=== PATIENT | female | born 1990 | race African-American/Black ===

== ENCOUNTER 2020-01-28 11:05 | Emergency (ER) | payer OTHER ==
[2020-01-28 11:22] VITALS: BP 104/53; PULSE 88; TEMP 98.7; BMI 22.6
--- NOTE | 2020-01-28 11:53 | PDOC ---
History of Present Illness - General Chief Complaint: Weakness Stated Complaint: WEAK AND RIGHT LEG PAIN Time Seen by Provider: 01/28/20 11:45 - History of Present Illness Initial Comments: 01/28/20 15:24 Chief complaint: Right leg pain, generalized weakness and fatigue HPI: Intermittent right leg pain for several weeks, described as a sharp shooting pain down the back of the thigh and calf, accompanied by numbness and paresthesias. Similar symptoms in the anterior thigh. Neither of these symptoms are present now. History of recurrent back pain, but no recent back pain and no injury or vigorous exercise. The patient does not spend prolonged periods of time sitting in a chair or in the car. Review of systems: Denies fever/chills, URI symptoms, sore throat, cough, chest pain, shortness of breath, abdominal pain, nausea, vomiting, diarrhea, visual symptoms, unsteadiness of gait. She is worried about STDs because she has had unprotected intercourse. HIV -1-year ago, no history of other STD in the past. No abnormal vaginal discharge or bleeding. No sores, lesions, lumps, or bumps in the genital area. Past medical history: Chronic intermittent back pain as described above. Heavy menses. Anemia thought due to heavy menses. Social/family history reviewed and noncontributory except as mentioned above Physical exam: Alert and oriented well-developed well-nourished no acute distress cheerful and cooperative. Patient does not appear to be in pain or in any other acute distress Afebrile, vital signs normal No pallor or icterus. PERRLA, fundi benign, ENT clear Neck supple without bruit mass or nodes Lungs clear with full breath sounds bilaterally CV S1-S2 normal without murmur rub or gallop pulses full and symmetric no JVD no edema Abdomen soft nontender without mass organomegaly. No CVAT Neurological C2 to 12 intact. No focal sensory or motor deficits. Strength full and symmetric. Cerebellar intact. Gait stable and unimpaired Extremities no CCE Skin clear, no rash, adequate turgor and wet mucous membranes LS spine without deformity or point tenderness. There is preservation of the normal lumbar lordosis. Straight leg raising is negative. As mentioned above, no demonstrable sensory or motor deficits. Impression: Sciatica, chronic anemia due to heavy menses, and noncompliance with iron therapy, unprotected intercourse with risk of STD Plan: Lidocaine patch, rest, and follow-up with orthopedist for sciatica. 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 Screen for STDs. Past History - Past Medical History Allergies/Adverse Reactions: Allergies Allergy/AdvReac Type Severity Reaction Status Date / Time No Known Allergies Allergy Verified 01/28/20 11:08 Home Medications: Ambulatory Orders Ferrous Sulfate 325 mg PO TID #90 tablet 01/28/20 Lidocaine 5% Patch [Lidoderm -] 1 patch TP DAILY #30 patch 01/28/20 Asthma: Yes Cancer: No Cardiac Disorders: No COPD: No Diabetes: No HTN: No Seizures: No Thyroid Disease: No - Surgical History Abdominal Surgery: Yes (PELVIC HERNIA X 2 (prior to C-sections)) - Reproductive History (#): 4 Para: 2 Cervical CA: No Dysfunctional Uterine Bleeding: No Ectopic : No Endometrial CA: No Polycystic Ovaries: No Therapeutic (s) & number: No Tubal Ligation: No Spontaneous : 1 - Psycho Social/Smoking Cessation Hx Smoking Status: Yes Smoking History: Current every day smoker Have you smoked in the past 12 months: Yes Number of Cigarettes Smoked Daily: 7 Information on smoking cessation initiated: No Hx Alcohol Use: No Drug/Substance Use Hx: No Substance Use Type: None Hx Substance Use Treatment: No *Physical Exam - Vital Signs Last Vital Signs Temp Pulse Resp BP Pulse Ox 98.7 F 88 16 104/53 L 100 01/28/20 11:08 01/28/20 11:08 01/28/20 11:08 01/28/20 11:08 01/28/20 11:08 ED Treatment Course - LABORATORY CBC & Chemistry Diagram: 01/28/20 12:35 01/28/20 13:00 Medical Decision Making - Medical Decision Making 01/28/20 14:21 CBC chemistries urinalysis and test all without significant abnormalities except for H&H, which is 8.4 and 28.6. Patient is known to be chronically anemic, thought to be due to heavy menses. And indeed prior CBCs stretching over greater than 1 year show hemoglobins in the range of 7-8 and hematocrit is in the range of 26-29. Patient has been advised to take iron, but has been noncompliant. Her menses remain heavy. No sign of acute infection. Shooting pains, numbness, and tingling in the L4- L5 distribution, right leg, probably due to sciatica. She has had back problems in the past, although no recent injury or exacerbation of back pain. Tylenol and lidocaine patch, with follow-up orthopedist/back specialist recommended. STD screens are pending and the patient will call back for results Fully ambulatory and in no significant pain or other distress at discharge to follow-up with primary physician and back specialist as directed. Discharge - Discharge Information Problems reviewed: Yes Clinical Impression/Diagnosis: Anemia Qualifiers: Anemia type: iron deficiency Iron deficiency anemia type: inadequate dietary iron intake Qualified Code(s): D50.8 - Other iron deficiency anemias Sciatica Qualifiers: Laterality: right Qualified Code(s): M54.31 - Sciatica, right side Condition: Stable Disposition: HOME - Admission No - Additional Discharge Information Prescriptions: Ferrous Sulfate 325 mg PO TID #90 tablet Lidocaine 5% Patch [Lidoderm -] 1 patch TP DAILY #30 patch - Follow up/Referral Referrals: Saleem Rose MD [Staff Physician] - - Patient Discharge Instructions Patient Printed Discharge Instructions: DI for Sciatica, DI for Iron Deficiency Anemia-Adult Additional Instructions: For your sciatica, avoid sitting in a chair or car seat for prolonged periods of time. Either lie flat or actively walk around. If no improvement, see pressure list as recommended For your anemia, take iron as prescribed, vitamin C, and follow-up with your hr administrator to see if treatment is warranted for your heavy periods. - Post Discharge Activity Work/Back to School Note: Back to Work
[2020-01-28] MEDS ORDERED: ACETAMINOPHEN 1000 MG/100 ML VIAL (NON FORMULARY) IVPB ONE (12:33)
[2020-01-28] MEDS ORDERED: SODIUM CHLORIDE 1,000 ML IV STA (12:33)
[2020-01-28] MEDS ORDERED: ACETAMINOPHEN INJECTION 100 ML IVPB ONE (12:43)
[2020-01-28 13:09] LABS: BILIRUBIN,TOTAL 0.4 mg/dl (0.2-1); CALCIUM 8.8 mg/dl (8.5-10); CREATININE 0.7 mg/dl (0.55-1.3)
[2020-01-28 14:10] LABS: BASO % 0.6 % (0-2.0); EOS % 2.7 % (0-4.5); HEMATOCRIT 28.6 % (32.4-45.2); HEMOGLOBIN 8.4 GM/dl (10.7-15.3); LYMPH % 17.5 % (8-40); MCHC 29.4 g/dl (32.0-36.0); MEAN CELL VOLUME 59.7 fl (80-96); MEAN PLT VOLUME 9.6 fl (7.5-11.1); NEUT % 63.2 % (42.8-82.8); PLATELET COUNT 240 K/MM3 (134-434); RDW 20.9 % (11.6-15.6); WHITE BLOOD COUNT 5.7 K/mm3 (4.0-10.8)
[2020-01-28 14:13] LABS: MCH 17.5 pg (25.7-33.7)
[2020-01-28 14:14] LABS: ADD RBC MORPHOLOGY YES
[2020-01-28 14:33] LABS: ANISOCYTOSIS 2+
[2020-01-28 14:35] LABS: PLATELET ESTIMATE ADEQUATE
== END 2020-01-28 14:38 | disposition home or self-care (01) ==
LOC: FER 11:05
PROC: 3E033NZ Introduction of Analgesics, Hypnotics, Sedatives into Peripheral Vein, Percutaneous Approach (ICD-10-PCS; principal; 2020-01-28)
DX: D50.8 Other iron deficiency anemias (principal); F17.210 Nicotine dependence, cigarettes, uncomplicated
CPT/HCPCS: 36415; 80053; 81003; 84703; 85025; 87389; 87491; 87591; 99284-25; J0131; J7030

== ENCOUNTER 2020-08-11 14:54 | Emergency (ER) | payer OTHER ==
[2020-08-11 15:01] VITALS: BP 95/63; PULSE 80; TEMP 98.8; BMI 23.6
--- NOTE | 2020-08-11 15:08 | PDOC ---
Rapid Medical Evaluation Chief Complaint: Lightheaded Time Seen by Provider: 08/11/20 15:05 Medical Evaluation: Allergies Allergy/AdvReac Type Severity Reaction Status Date / Time No Known Allergies Allergy Verified 01/28/20 11:08 Vital Signs Temp Pulse Resp BP Pulse Ox 98.8 F 80 18 95/63 99 08/11/20 14:58 08/11/20 14:58 08/11/20 14:58 08/11/20 14:58 08/11/20 14:58 08/11/20 15:07 CC: lightheadned, went to urgent care clinic and BP 92/50, hx anemia, denies active bleeding and takes iron daily Exam: bp borderline low, appears pale Plan: labs Discharge Disposition - Diagnosis Dizziness - Discharge Dispostion Disposition: ELOPED Condition at time of disposition: Stable - Referrals Referrals: Lexis Frances NP [Primary Care Provider] - - Patient Instructions - Post Discharge Activity
--- OUTSIDE RECORDS SUMMARY | 2020-08-11 19:00 | XMS ---
:1990 Author Organization [facility] Care Team Providers Name Role Phone MEGHAN MILLER, LESLEYY Unavailable MEGHAN MILLER, RINY Unavailable MEGHAN MILLER, RINY Unavailable MEGHAN MILLER, RINY Unavailable DAVID MILLER, EVERARDO Unavailable DAVID MILLER, EVERARDO Unavailable DAVID MILLER, EVERARDO Unavailable DAVID MILLER, EVERARDO Unavailable DAVID MILLER, EVERARDO Unavailable ACE CNM, LUCY Unavailable ACE CNM, LUCY Unavailable RADHA ACQUISITION PROFESSIONAL, AMERICO Unavailable RADHA ACQUISITION PROFESSIONAL, AMERICO Unavailable VERÓNICA SYLVESTER Unavailable Unavailable KAYLEEN BENITEZ Unavailable Unavailable Re-disclosure Warning The records that you are about to access may contain information from federally- assisted alcohol or drug abuse programs. If such information is present, then the following federally mandated warning applies: This information has been disclosed to you from records protected by federal confidentiality rules (42 CFR part 2). The federal rules prohibit you from making any further disclosure of this information unless further disclosure is expressly permitted by the written consent of the person to whom it pertains or as otherwise permitted by 42 CFR part 2. A general authorization for the release of medical or other information is NOT sufficient for this purpose. The Federal rules restrict any use of the information to criminally investigate or prosecute any alcohol or drug abuse patient.The records that you are about to access may contain highly sensitive health information, the redisclosure of which is protected by Article 27-F of the [facility] Public Health law. If you continue you may haveaccess to information: Regarding HIV / AIDS; Provided by facilities licensed or operated by the [facility] Office of Mental Health; or Provided by the [facility] Office for People With Developmental Disabilities. If such information is present, then the following [facility] mandated warning applies: This information has been disclosed to you from confidential records which are protected by state law. State law prohibits you from making any further disclosure of this information without the specific written consent of the person to whom it pertains, or as otherwise permitted by law. Any unauthorized further disclosure in violation of state law may result in a fine or mcc sentence or both. A general authorization for the release of medical or other information is NOT sufficient authorization for further disclosure. Allergies and Adverse Reactions Type Description Substance Reaction Status Data Source(s ) Allergy to No Known Allergies No known GREENW AY ([facility] substance allergies [facility] ) Allergy to No Known Allergies No known GREENW AY ([facility] substance allergies [facility] ) Allergy to No Known Allergies No known GREENW AY ([facility] substance allergies [facility] ) Allergy to No Known Allergies No known GREENW AY ([facility] substance allergies [facility] ) Encounters Encounter Providers Location Date Indications Data Source(s ) Outpatient Attender: NGA 06/04/2020 Z03.818 [facility] VERÓNICA GuzmanAdmitter: 06:00:00 AM Health Care VERÓNICA SYLVESTER ED Corporatio n E.Referrer: VERÓNICA SYLVESTER Z03.818 Outpatient<td Attender: Hector 03/21/2019 Visual SATYA ID="encounterTypeDescriptionID0">[facility]</td><td>[facility] 01:15:00 PM DisturbancesChlamydial ([facility]</td><td>[facility] EDT - InfectionsAnemia Neighborhood Center</td><td>03/21/2019</td><td><content ACQUISITION PROFESSIONAL Center 02/25 Health ID="encounterDiagnosisID0-0">Chlamydial 11:59:0 0 PM Center) Infections</content>, <content EDT ID="encounterDiagnosisID0-1">Anemia</content>, <content ID="encounterDiagnosisID0-2">Visual Disturbances</content></td> Visual Disturbances Chlamydial Infections Anemia Outpatient<td Attender: Hector 03/21/2019 Chlamydial SATYA ID="encounterTypeDescriptionID1">*OUTREACH*</td><td>[facility] 11:47:00 AM InfectionsChlamydial ([facility]</td><td>[facility] E DT - Infections [facility]</td><td>03/21/2019</td><td><content ACQUISITION PROFESSIONAL Center 02/25 Health ID="encounterDiagnosisID1-0">Chlamydial 11:59:0 0 PM Center) Infections</content></td> EDT Chlamydial Infections Chlamydial Infections Emergency Attender: ELI, 03/17/2019 12:08:00 [facility] Outpatient<td Attender: Hector 03/17/2019 SATYA ID="encounterTypeDescriptionID2">*OUTREACH*</td><td>[facility] 10:44:00 AM ([facility]</td><td>[facility] E DT - Neighborhood Center</td><td>03/17/2019</td><td></td> ACQUISITION PROFESSIONAL Center [facility] 11:59:00 PM Center) EDT Outpatient<td ID="encounterTypeDescriptionID3">COMPLETE Attender : Hector 03/11/2019 R TOA ALTA PHYSICAL EXAM</td><td>[facility] ACQUISITION PROFESSIONAL</td><td>[facility] 10:30:00 AM o ([facility] EDT - u Neighbor [facility]</td><td>03/11/2019</td><td><content ACQUISITION PROFESSIONAL Center 02/24 t Health ID="encounterDiagnosisID3-0">Preventive Med Standardized 01:06:32 PM i Center) Depression Screening: Negative For Symptoms</content>, EDT n <content ID="encounterDiagnosisID3-1">Questionnaires Phq-9 e Quick Depression Assessment Panel</content>, <content H ID="encounterDiagnosisID3-2">Routine History and i Physical</content>, <content s ID="encounterDiagnosisID3-3">Anemia</content></td> t o r y a n d P h y s i c a l Q u e s t i o n n a i r e s P h q - 9 Q u i c k D e p r e s s i o n A s s e s s m e n t P a n e l P r e v e n t i v e M e d S t a n d a r d i z e d D e p r e s s i o n S c r e e n i n g : N e g a t i v e F o r S y m p t o m s R o u t i n e H i s t o r y a n d P h y s i c a l Q u e s t i o n n a i r e s P h q - 9 Q u i c k D e p r e s s i o n A s s e s s m e n t P a n e l P r e v e n t i v e M e d S t a n d a r d i z e d D e p r e s s i o n S c r e e n i n g : N e g a t i v e F o r S y m p t o m s R o u t i n e H i s t o r y a n d P h y s i c a l Q u e s t i o n n a i r e s P h q - 9 Q u i c k D e p r e s s i o n A s s e s s m e n t P a n e l P r e v e n t i v e M e d S t a n d a r d i z e d D e p r e s s i o n S c r e e n i n g : N e g a t i v e F o r S y m p t o m s R o u t i n e H i s t o r y a n d P h y s i c a l Q u e s t i o n n a i r e s P h q - 9 Q u i c k D e p r e s s i o n A s s e s s m e n t P a n e l P r e v e n t i v e M e d S t a n d a r d i z e d D e p r e s s i o n S c r e e n i n g : N e g a t i v e F o r S y m p t o m s A n e m i a A n e m i a A n e m i a A n e m i a Routine History and Physical Questionnaires Phq-9 Quick Depression As sessment Panel Preventive Med Standardized Depression S creening: Negative For Symptoms Routine History and Physical Questionnaires Phq-9 Quick Depression As sessment Panel Preventive Med Standardized Depression S creening: Negative For Symptoms Routine History and Physical Questionnaires Phq-9 Quick Depression As sessment Panel Preventive Med Standardized Depression S creening: Negative For Symptoms Routine History and Physical Questionnaires Phq-9 Quick Depression As sessment Panel Preventive Med Standardized Depression S creening: Negative For Symptoms Anemia Anemia Anemia Anemia Outpatient<td Attender: Hector 07/16/2018 VaginitisVaginitisVaginitisVaginitisAnemiaAnemiaAnemiaAnemia TOA ALTA ID="encounterTypeDescriptionID4">[facility] 06:00:0 0 PM (Shama Yadav VISIT</td><td>[facility]td[facility] 07/16/2018 Health Center</td><td>07/16/2018</td><td><content 06:5 5:41 PM Center) ID="encounterDiagnosisID4-0">Vaginitis</content>, EDT <content ID="encounterDiagnosisID4-1">Anemia</content></td> Vaginitis Vaginitis Vaginitis Vaginitis Anemia Anemia Anemia Anemia Outpatient<td Attender: Hector 01/03/2018 BackacheBackacheBackacheBackacheAnemiaAnemiaAnemiaAnemia TOA ALTA ID="encounterTypeDescriptionID5">[facility]</td><td>[facility] 06:00:00 PM ([place] [facility] </td><td>[facility] Center</td><td>01/03/2018</td><td><content Center 0 06/2018 Health ID="encounterDiagnosisID5-0">Anemia</content>, 06:53:49 PM Center) <content EST ID="encounterDiagnosisID5-1">Backache</content></td> Backache Backache Backache Backache Anemia Anemia Anemia Anemia Outpatient<td Attender: 01/02/2018 TOA ALTA ID="encounterTypeDescriptionID6">*OUTREACH*</td><td>LUCY DAVIS 11:44:00 AM (Shama Yadav ACE CNM</td><td> [facility] EST - [place] </td><td>01/02/2018</td><td></td> 01/02/2018 Health 11:59:00 PM Center) EST Outpatient<td Attender: Edilson 12/25/2017 TOA ALTA ID="encounterTypeDescriptionID7">*OUTREACH*</td><td>AMERICO QUIROGAY 05:53:00 PM (Shama Yadav [facility] ACQUISITION PROFESSIONAL</td><[facility]</td><td>12/25/2017</td><td></td> ACQUISITION PROFESSIONAL k 018 Health e 11:59:00 PM [place]) r EST s C o m m u n i t y H e a l t h C e n t e r Outpatient<td ID="encounterTypeDescriptionID8">COMPLETE Attender: Y 12/24/2017 A TOA ALTA PHYSICAL EXAM</td><td>AMERICO RADHA ACQUISITION PROFESSIONAL</td><td>[facility] o 01:00:00 PM b ([facility]</td><td>12/24/2017</td><td><content RADHA n EST - d Neighborhood ID="encounterDiagnosisID8-0">Questionnaires Phq-9 Quick [facility] k 12/24/2017 [facility] Depression Assessment Panel</content>, <content e 02:39:37 PM [facility]) ID="encounterDiagnosisID8-1">Routine History and r EST i Physical</content>, <content s n ID="encounterDiagnosisID8-2">Alopecia</content>, <content C a ID="encounterDiagnosisID8-3">Abnormal Weight Loss</content>, o l <content ID="encounterDiagnosisID8-4">Abdominal m P Pain</content></td> m a u i n n i A t b y n H o e r a m l a t l h W C e e i n g t h e t r L o s s A l o p e c i a R o u t i n e H i s t o r y a n d P h y s i c a l Q u e s t i o n n a i r e s P h q - 9 Q u i c k D e p r e s s i o n A s s e s s m e n t P a n e l A b d o m i n a l P a i n A b n o r m a l W e i g h t L o s s A l o p e c i a R o u t i n e H i s t o r y a n d P h y s i c a l Q u e s t i o n n a i r e s P h q - 9 Q u i c k D e p r e s s i o n A s s e s s m e n t P a n e l A b d o m i n a l P a i n A b n o r m a l W e i g h t L o s s A l o p e c i a R o u t i n e H i s t o r y a n d P h y s i c a l Q u e s t i o n n a i r e s P h q - 9 Q u i c k D e p r e s s i o n A s s e s s m e n t P a n e l A b d o m i n a l P a i n A b n o r m a l W e i g h t L o s s A l o p e c i a R o u t i n e H i s t o r y a n d P h y s i c a l Q u e s t i o n n a i r e s P h q - 9 Q u i c k D e p r e s s i o n A s s e s s m e n t P a n e l Abdominal Pain Abnormal Weight Loss Alopecia Routine History and Physical Questionnaires Phq-9 Quick Depression As sessment Panel Abdominal Pain Abnormal Weight Loss Alopecia Routine History and Physical Questionnaires Phq-9 Quick Depression As sessment Panel Abdominal Pain Abnormal Weight Loss Alopecia Routine History and Physical Questionnaires Phq-9 Quick Depression As sessment Panel Abdominal Pain Abnormal Weight Loss Alopecia Routine History and Physical Questionnaires Phq-9 Quick Depression As sessment Panel Outpatient<td ID="encounterTypeDescriptionID9">[employer] Attender: Patrick william 12/24/2017 Routine Gynecological Exam with [facility]</td><td>LUCY BELLO CNM</td><td>Hector boswell 11:00:00 AM Cervical Pap ([facility] Health EST - [facility]</td><td>12/24/2017</td><td><content Center 12/24/2017 Gynecological Exam with Cervical Health ID="encounterDiagnosisID9-0">Vaginitis</content>, 12:44:44 PM Pap Center) <content EST SmearMetrorrhagiaVaginiti sRoutine ID="encounterDiagnosisID9-1">Metrorrhagia</content Gynecological Exam with Cervical >, <content ID="encounterDiagnosisID9-2">Routine Pap Gynecological Exam with Cervical Pap SmearMetrorrhagiaVaginitisRoutine Smear</content></td> Gynecological E xam with Cervical Pap SmearMetrorrhagiaVagi nitis Routine Gynecological Exam with Cervical Pap Smear Metrorrhagia Vaginitis Routine Gynecological Exam with Cervical Pap Smear Metrorrhagia Vaginitis Routine Gynecological Exam with Cervical Pap Smear Metrorrhagia Vaginitis Routine Gynecological Exam with Cervical Pap Smear Metrorrhagia Vaginitis Outpatient<td Attender: Hector 12/14/2015 AnemiaAnemiaAnemiaAnem ia SATYA ID="[id number]">[facility]</td><td>[facility] 01:45:00 PM (Shama Yadav [facility]</td><td>[facility] E ST - [facility]</td><td>12/14/2015</td><td><content ACQUISITION PROFESSIONAL Center 11/26 Health ID="[id number]">Anemia</content></td> 03:25:22 PM Center) EST Anemia Anemia Anemia Anemia Outpatient<td Attender: Hector 12/11/2015 TOA ALTA ID="[id number]">*PPD [facility] 01:00:00 PM (Shama Yadav Reading*</td><td>[facility] MD</td><td>[facility] MD Center 12/11/2015 Health Center</td><td>12/11/2015</td><td></td> 12:55:3 6 PM Center) EST Outpatient<td Attender: Hector 12/09/2015 SATYA ID="[id number]">[facility] 01:00: 00 PM ([place] TE PHYSICAL EXAM</td><td>ROGER CHRISTIANSON MD Health EST - Neighborhood </td><td>[facility] 12/09/2015 Health Center</td><td>12/09/2015</td><td></td> 02:31:3 8 PM Center) EST Medications Medication Brand Start Product Dose Route Administrative Pharmacy [facility] Indications Reaction Description Data Name Date Form Instructions Instructions Source(s) Azithromyci Azithr 03/21/ UNIT 1 active Azithro mycin SATYA n 16.7 omycin 2018 ([place] MG/ML Oral 1GM 12:00: Leif Suspension Oral 00 AM Neighbor ho Azithromyci Packet EDT od Hea lth n 1GM Oral Center) Packet ferrous Ferrou UNIT 1 active Ferrous GRE ENWAY sulfate 325 s 2019 Sulfate (Moun t MG Oral Sulfat 12:00: Leif Tablet e 325 00 AM Neighborho Ferrous (65 EDT od Health Sulfate 325 Fe)MG Center) (65 Fe)MG Oral Oral Tablet Tablet Flagyl Flagyl 07/16/ UNIT 1 complet Flagyl GREE NWAY 500MG Oral 500MG 2017 ed ([place] Tablet Oral 12:00: Leif Tablet 00 AM Neighborho EDT od Health Center) ferrous Ferrou UNIT 1 suspend Ferrous GR EENWAY sulfate 325 s 2017 ed Sulfate (Moun t MG Oral Sulfat 12:00: Leif Tablet e 325 00 AM Neighborho Ferrous (65 EDT od Health Sulfate 325 Fe)MG Center) (65 Fe)MG Oral Oral Tablet Tablet ferrous Ferrou UNIT 1 suspend Ferrous GR EENWAY sulfate 325 s 2017 ed Sulfate (Moun t MG Oral Sulfat 12:00: Leif Tablet e 325 00 AM Neighborho Ferrous (65 EST od Health Sulfate 325 Fe)MG Center) (65 Fe)MG Oral Oral Tablet Tablet ferrous Ferrou UNIT 1 complet Ferrous GR EENWAY sulfate 325 s 2015 ed Sulfate (Moun t MG Oral Sulfat 12:00: Leif Tablet e 325 00 AM Neighborho Ferrous (65 EST od Health Sulfate 325 Fe) MG Center ) (65 Fe) MG Tablet Tablet Insurance Providers Payer name Policy type / Policy ID Covered Covered green party's Policy Plan Coverage type green party ID relationship to Stauffer Information stauffer [place] [id number] SP [id number] HEALTH NON CAP [place] [facility] [id number] S [id number] [place] Medicaid Medicaid [id number] S [id number] Regular Clinic Visit Dental [id number] S [id number] Dentaquest MKD Kyree Vision [id number] S [id number] MKD [place] Individual 0 Self 0 [place] Policy [place] [facility] Individual 0 Self 0 [place] Policy [place] [facility] Individual 0 Self 0 [place] Policy [place] [facility] Individual 0 Self 0 [place] Policy Problems, Conditions, and Diagnoses Code Display Name Description Problem Type Effective Data Sour ce(s) Dates 106662381 Anemia (disorder) Anemia Problem 12/14/2015 [facility] Y ([place] 12:00:00 AM [facility]) [id number] Anemia (disorder) Anemia Problem 12/14/2015 [facility] Y ([place] 12:00:00 AM [facility]) [id number] Anemia (disorder) Anemia Problem 12/14/2015 [facility] [place] ([place] 12:00:00 AM [facility]) [id number] Anemia (disorder) Anemia Problem 12/14/2015 [facility] Y ([place] 12:00:00 AM [facility]) Z03.818 Encounter for ENCNTR FOR OBS FOR Diagnosis 06/04/2020 [facility] observation for SUSP EXPSR TO OTH 06:00:00 AM C ouhive01 [facility] suspected exposure BIOLG AGENTS RULED EDT Care to other OUT Corporation biological agents ruled out R79.9 Abnormal finding ABNORMAL FINDING Diagnosis 03/17/2019 Gee ordonez of blood OF BLOOD 12:08:00 PM [facility] chemistry, CHEMISTRY, EDT Care unspecified UNSPECIFIED Corporation D64.9 Anemia, ANEMIA, Diagnosis 03/17/2019 Irvona unspecified UNSPECIFIED 12:08:00 [facility] EDT Care Soundsupply Z98.890 Other specified OTHER SPECIFIED Diagnosis 03/17/2019 [place] postprocedural POSTPROCEDURAL 12:08:00 PM [facility] y [facility] EDT Care Soundsupply F17.200 Nicotine NICOTINE Diagnosis 03/17/2019 Irvona dependence, DEPENDENCE, 12:08:00 PM [facility] unspecified, UNSPECIFIED, EDT Care uncomplicated UNCOMPLICATED Corporat ion N76.0 Acute vaginitis Acute vaginitis Diagnosis 01/24/2019 CHRISTINE NWAY ([place] 04:18:29 PM [facility]) B96.89 Other specified Oth bacterial Diagnosis 01/24/2019 GREENRenetta AY ([place] bacterial agents agents as the 04:18:29 PM [place] on as the cause of cause of diseases EST Ne ighborhood diseases classd [facility] er) classified elsewhere D64.9 Anemia, Anemia, Diagnosis 01/24/2019 TOA ALTA (Moun t unspecified unspecified 04:18:29 PM [facility]) Z76.0 Encounter for Encounter for Diagnosis 01/24/2019 TOA ALTA ([facility] issue of repeat issue of repeat 04:18:29 PM Hardik non prescription prescription [facility]) Surgeries/Procedures Procedure Description Date Indications Data Source(s) Date of last Date of last 03/21/2019 TOA ALTA ([facility] menstruation 02/19/2019 menstruation 12:00:00 AM [facility] 02/19/2019 [facility]) Date of last Date of last 03/11/2019 TOA ALTA ([facility] menstruation 02/19/2019 menstruation 12:00:00 AM [facility] 02/19/2019 [facility]) Annual depression DEPRESSION SCREENING 03/11/2019 KARI LITTLE ([facility] screening, 15 minutes (15 MINS) 12:00:00 AM [facility]) VISUAL ACUITY SCREEN VISUAL ACUITY SCREEN 03/11/2019 TOA ALTA ([facility] 12:00:[address] [facility]) History of surgery History of surgery 03/11/2019 ANIYA ENWAY ([place] hernia hernia 12:00:[address] [facility]) Past medical history Past medical history 03/11/2019 TOA ALTA ([facility] G4 L3 M1 A0 G4 L3 M1 A0 12:00:[address] [facility]) No history of No history of 01/03/2018 TOA ALTA ([facility]ra nt appendectomy appendectomy 12:00:00 AM [facility]) No history of No history of 01/03/2018 TOA ALTA ([facility] hysterectomy hysterectomy 12:00:00 AM [facility]) No history of No history of 01/03/2018 TOA ALTA ([facility] nt prostatectomy prostatectomy 12:00:[address] [facility]) No history of thyroid No history of thyroid 01/03/2018 SATYA ([facility] surgery surgery 12:00:00 AM [facility]) History of Eyes: History of Eyes: 01/03/2018 PAM Y ([facility] normal normal 12:00:00 AM [facility]) Recent change in Recent change in 01/03/2018 PAM Y ([facility] medical history medical history 12:00:00 AM [facility]) Heavy periods ~Anemia Heavy periods ~Anemia 12/24/2017 SATYA ([facility] 12:00:00 AM [facility]) 3 3 12/24/2017 SATYA ([facility] 12:00:00 AM [facility]) Last pap smear date Last pap smear date 12/24/2017 Harmeet MAYFIELD ([facility] 2016 2016 12:00:00 AM [facility]) LMP: 11/26/2017 LMP: 11/26/2017 12/24/2017 SATYA (M ount 12:00:00 AM [facility]) Not using Not using 12/24/2017 SATYA ([facility] contraception contraception 12:00:[address] [facility]) Para 3 Para 3 12/24/2017 SATYA ([facility] 12:00:00 AM [facility]) Result: normal Result: normal 12/24/2017 SATYA (M ount 12:00:00 AM [facility]) Advance healthcare Advance healthcare 12/14/2015 ANIYA ALVARADO ([facility] directive not on file directive not on file 12:00:00 AM [facility]) Aborta 1 Aborta 1 12/09/2015 SATYA ([facility] 12:00:00 AM [facility]) No history of blood No history of blood 12/09/2015 Harmeet MAYFIELD ([facility] transfusion transfusion 12:00:00 AM [facility]) No history of coronary No history of 12/09/2015 CHRISTINE DUQUE ([facility] artery disease coronary artery 12:00:[address] [facility] disease [facility]) No history of No history of 12/09/2015 SATYA ([facility]ra nt essential hypertension essential 12:00:00 AM [facility] hypertension [facility]) No history of No history of 12/09/2015 SATYA ([facility] hyperlipidemia hyperlipidemia 12:00:00 AM [facility] hborhood [facility]) No history of type 2 No history of type 2 12/09/2015 SATYA ([facility] diabetes mellitus diabetes mellitus 12:00:00 AM [facility]) Results ID Date Data Source [id number] 06/05/2020 12:00:00 AM EDT [facility] Name Value Range Interpretation Code Description Data Luz rce(s) Supporting Document(s ) SARS-COV-2 Irvona RNA RT-PCR [facility] This lab was ordered by [facility] and reported by [facility]. ID Date Data Source [id number] 03/21/2019 12:05:40 PM EDT PAM Edilson ([place] [id number] [facility]) Name Value Range Interpretation Description Data Source(s ) Supporting Code Document(s ) No Results No Results No Results SATYA ([facility] Recorded For [facility]) ID Date Data Source [id number] 03/17/2019 11:09:52 AM EDT PAM Edilson ([place] [id number] [facility]) Name Value Range Interpretation Description Data Source(s ) Supporting Code Document(s ) No Results No Results No Results SATYA ([facility] Recorded For [facility]) ID Date Data Source [id number] 03/15/2019 11:06:00 AM EDT SATYA (Sahra nt [facility]) Name Value Range Interpretation Description Data Sup porting Code Source(s) Document(s ) Calcium 9.3 Calcium SATYA [Mass/volume] in mg/dL ([facility] or [facility]) Protein 7.1 Protein, SATYA [Mass/volume] in g/dL Total ([facility]) Albumin 4.4 Albumin SATYA [Mass/volume] in g/dL ([facility]) Glucose 82 Glucose SATYA [Mass/volume] in mg/dL ([facility]) Urea nitrogen 13 BUN SATYA [Mass/volume] in mg/dL ([place] Serum or Plasma [facility]) Alkaline 46 IU/L Alkaline SATYA phosphatase Phosphatase ([place] [Enzymatic [facility] activity/volume] [facility] in Serum or Plasma [place]) Bilirubin.total 0.4 Bilirubin, SATYA [Mass/volume] in mg/dL Total ([place] Serum or [facility]) Aspartate 18 IU/L AST (SGOT) SATYA aminotransferase ([place] [Enzymatic [facility] activity/volume] [facility] in Serum or Plasma [place]) Potassium 4.1 Potassium SATYA [Moles/volume] in mmol/L ([facility] Serum or [facility]) Carbon dioxide, 20 Carbon SATYA total mmol/L Dioxide, ([place] [Moles/volume] in Total [facility] Serum or [facility]) Chloride 104 Chloride SATYA [Moles/volume] in mmol/L ([facility] Serum or [facility]) Alanine 11 IU/L ALT (SGPT) SATYA aminotransferase ([place] [Enzymatic [facility] activity/volume] [facility] in Serum or Plasma [place]) Sodium 137 Sodium SATYA [Moles/volume] in mmol/L ([facility] Serum or [facility]) Creatinine 0.68 Creatinine SATYA [Mass/volume] in mg/dL ([facility]) Urea 19 BUN/Creatinin SATYA nitrogen/Creatinin e Ratio ([facility] on e [Mass Ratio] in [facility] Serum or [facility]) Albumin/Globulin 1.6 A/G Ratio SATYA [Mass Ratio] in ([facility] or [facility]) eGFR If NonAfricn 119 eGFR If SATYA Am mL/min/ NonAfricn Am ([address]) Globulin 2.7 Globulin, SATYA [Mass/volume] in g/dL Total ([place] Serum by [facility]) eGFR If Africn Am 137 eGFR If SATYA mL/min/ Africn Am ([address]) ID Date Data Source [id number] 03/15/2019 11:06:00 AM EDT SATYA ([facility]) Name Value Range Interpretation Description Data Source(s ) Supporting Code Document(s ) Cholesterol 142 Cholesterol, SATYA [Mass/volume] mg/dL Total ([facility] Serum or [facility] Plasma [facility]) Cholesterol in 49 HDL Cholesterol SATYA HDL mg/dL ([place] [Mass/volume] Neighborhood in Serum or Health Center) Plasma Triglyceride 55 Triglycerides SATYA [Mass/volume] mg/dL ([place] in Serum or [facility] Plasma [facility]) Laboratory N/A Comment: TOA ALTA comment [Text] (Shama Yadav in Report [facility]) Cholesterol in 1.7 LDL/HDL Ratio SATYA LDL/Cholestero ratio ([place] l in HDL [Mass Neighborhood Ratio] in [facility]) Serum or Plasma Note: LDL/HDL Ratio Men Women 1/2 Avg.Risk 1.0 1.5 Avg.Risk 3.6 3.2 2X Avg.Risk 6.2 5.0 3X Avg.Risk 8.0 6.1 Cholesterol in VLDL 11 mg/dL VLDL Cholesterol Mina TOA ALTA ([place] [Mass/volume] in Serum or [facility] Plasma by calculation Center) Cholesterol in LDL 82 mg/dL LDL Cholesterol Calc TOA ALTA ([place] [Mass/volume] in Serum or [facility] Plasma by calculation Center) ID Date Data Source [id number] 03/15/2019 11:06:00 AM EDT TOA ALTA ([facility]) Name Value Range Interpretation Description Data Source(s ) Supporting Code Document(s ) Thyrotropin 1.680 TSH TOA ALTA ([facility] [Units/volume] uIU/mL [place] in Serum or [facility] Plasma by [facility]) Detection limit <= 0.05 mIU/L ID Date Data Source [id number] 03/15/2019 11:06:00 AM EDT TOA ALTA ([facility]) Name Value Range Interpretation Description Data Source(s ) Supporting Code Document(s ) Hepatitis B Reactive Hep B Surface TOA ALTA virus Ab, Qual ([place] surface Ab [facility] [Presence] [facility]) in Serum Note: Non R eactive: Inconsistent with immunity, less th an 10 mIU/mL Reactive: Consistent with immunity, greater than 9.9 mIU/mL ID Date Data Source [id number] 03/15/2019 11:06:00 AM EDT TOA ALTA ([facility]) Name Value Range Interpretation Description Data Source(s ) Supporting Code Document(s ) HIV 1+2 Non HIV Screen TOA ALTA Ab+HIV1 p24 Reactive 4th ([place] Ag [Presence] Generation Neighborhood in Serum or [facility]) Plasma by Immunoassay ID Date Data Source [id number] 03/15/2019 11:06:00 AM EDT SATYA ([facility]) Name Value Range Interpretation Description Data Source(s ) Supporting Code Document(s ) Chlamydia sp 5.87 Above high normal Chlamydia TOA ALTA ([facility] IgG Ab ratio Antibodies, [place] [Units/volum IgG Neighborhood e] in Serum Health Center) Note: Negative <0.91 Equi vocal 0.91 - 1.09 Positive >1.0 9 ID Date Data Source [id number] 03/15/2019 11:06:00 AM EDT TOA ALTA ([facility]) Name Value Range Interpretation Description Data Source(s ) Supporting Code Document(s ) Hepatitis C <0.1 Hep C Virus TOA ALTA virus Ab s/co_rat Ab ([place] Signal/Cutoff io Neighborhood in Serum or Health Center) Plasma by Immunoassay Note: Negative: < 0.8 Indeterm inate: 0.8 - 0.9 Positive: > 0.9 The CDC recommends that a positive HCV antibody result be followed up with a HCV Nucleic Acid Amplification test (53072 3). ID Date Data Source [id number] 03/15/2019 11:06:00 AM EDT TOA ALTA ([facility]) Name Value Range Interpretation Description Data Source(s ) Supporting Code Document(s ) Hepatitis B Negative HBsAg Screen SATYA virus surface ([place] Ag [Presence] Neighborhood in Serum or Health Center) Plasma by Immunoassay ID Date Data Source [id number] 03/15/2019 11:06:00 AM EDT TOA ALTA ([facility]) Name Value Range Interpretation Description Data Source(s ) Supporting Code Document(s ) Hepatitis B Negative Hep B Core TOA ALTA virus core Ab Ab, Tot ([place] [Presence] in [facility] Serum or Health [place]) Plasma by Immunoassay ID Date Data Source [id number] 03/15/2019 11:06:00 AM EDT TOA ALTA ([facility]) Name Value Range Interpretation Description Data Source(s ) Supporting Code Document(s ) NTI for DDR NTI for Aptima SATYA ([facility] Aptima Urine [place] Urine [facility]) Note: Dear Doctor, The requisition we received for the above patient has no test indicated on the req uest form for one or more of the specimens submitted. The [place] Code of Federal Regulations requires a written and signed request be forwarded to the testing laboratory following the verbal order of a laborato ry test. Please complete the following and fax to [phone] to expedite testing. Required test name(s) ___ Required test number(s) Physician signature __ Date Diagnosis Code: __ In order to maintain sample integrity, samples will be store d for two to seven days from the date of receipt.An Aptima urine was received with no test indicated. If testing isrequired on this specimen, please contact the [facility] Client Inquiry/Technical Services Department to obtain a Request for [place] enAuthorization Form. ID Date Data Source [id number] 03/11/2019 12:37:26 PM EDT PAM Waggoner ([place] [id number] Name Value Range Interpretation Description Data Source(s ) Supporting Code Document(s ) No Results No Results No Results SATYA ([facility] Recorded For [place] Specified [facility]) Procedure Social History Code Duration Value Status Description Data Source(s ) Smoking 03/11/2019 Smokes tobacco completed Smokes tobacco JAYE AY ([facility] 12:37:23 PM daily (finding) daily (finding) [facility] Assertion Exercise history completed Exercise history GR EENWAY ([facility] finding (finding) finding (finding) [facility]) Assertion Caffeine user completed Caffeine user SATYA ([facility] (finding) (finding) [facility]) Assertion Finding of completed Finding of SATYA (Moun t functional functional [place] performance and performance and [facility] hborhood activity activity Health Center) (finding) (finding) Assertion Finding of life completed Finding of life GREE NWFABI ([facility] event (finding) event (finding) [facility]) Assertion Physical handicap completed Physical handicap SATYA ([facility] (finding) (finding) [facility]) Assertion sexual history completed SATYA ( [facility]) Assertion Finding of completed Finding of SATYA (Moun t activity of daily activity of daily [place] living (finding) living (finding) [facility]) Assertion Current drinker completed Current drinker ANIYASalvador NWFABI ([facility] of alcohol of alcohol [place] (finding) (finding) [facility]) Assertion Finding relating completed Finding relating GR EENWAY ([facility] to drug misuse to drug misuse [place] behavior behavior [facility] (finding) (finding) [facility] [place]) Assertion Cigarette smoker completed Cigarette smoker GR EENWAY ([facility] (finding) (finding) [facility]) Assertion Tobacco user completed Tobacco user TOA ALTA ( [facility] (finding) (finding) [facility]) Assertion Smoker (finding) completed Smoker (finding) GR EENWAY ([facility]) Assertion Intravenous drug completed Intravenous drug GR EENWAY ([facility] user (finding) user (finding) [facility]) Assertion High risk sexual completed High risk sexual GR EENWAY ([facility] behavior behavior [place] (finding) (finding) [facility]) Vital Signs ID Date Data Source [id number] Name Value Range Interpretation Code Description Data Source(s) Systolic blood 120 mm[Hg] 120 mm[Hg] TOA ALTA ( [facility]) Pt is here for lab results. Diastolic blood pressure 68 mm[Hg] 68 mm[Hg] TOA ALTA ([facility]) Pt is here for lab results. Heart rate 84 /min 84 /min TOA ALTA ([facility]) Pt is here for lab results. Body temperature 98.2 [degF] 98.2 [degF] JAYE ([facility]) Pt is here for lab results. Body height 63 [in_us] 63 [in_us] SATYA ([facility]) Pt is here for lab results. Body weight 110 [lb_av] 110 [lb_av] TOA ALTA ([facility]) Pt is here for lab results. Body mass index (BMI) 19.5 kg/m2 19.5 kg/m2 [facility] ([place] [[facility]] [facility]) Pt is here for lab results. Body surface area Derived from 1.50 m2 1.50 m2 TOA ALTA ([facility]) Pt is here for lab results. PhenX - pain, abdominal - type and 0 0 TOA ALTA ([facility]) Pt is here for lab results. Systolic blood pressure 97 mm[Hg] 97 mm[Hg] [facility] ([facility]) Pt is here for complete physical exam. Diastolic blood pressure 63 mm[Hg] 63 mm[Hg] TOA ALTA ([facility]) Pt is here for complete physical exam. Heart rate 78 /min 78 /min TOA ALTA ([facility]) Pt is here for complete physical exam. Body temperature 98.1 [degF] 98.1 [degF] NIKKIW AY ([facility]) Pt is here for complete physical exam. Body height 63 [in_us] 63 [in_us] SATYA ([facility]) Pt is here for complete physical exam. Body weight 109 [lb_av] 109 [lb_av] SATYA ([facility]) Pt is here for complete physical exam. Body mass index (BMI) 19.3 kg/m2 19.3 kg/m2 GRE ENWAY ([place] [[facility]] [facility]) Pt is here for complete physical exam. Body surface area Derived from 1.49 m2 1.49 m2 TOA ALTA ([facility]) Pt is here for complete physical exam. PhenX - pain, abdominal - type and 0 0 SATYA ([facility]) Pt is here for complete physical exam. Body height 63 [in_us] 63 [in_us] SATYA (Sahra nt [facility]) Patient Treatment Plan of Care Planned Activity Planned Date Details Description Data Source (s) Azithromycin 16.7 MG/ML 03/21/2019 ANIYAE NWAY ([place] Oral Suspension 12:00:00 AM [facility]) ferrous sulfate 325 MG 03/21/[address] ([place] Oral Tablet 12:00:[address] [facility]) ferrous sulfate 325 MG 07/16/[address] ([place] Oral Tablet 12:00:[address] [facility]) Flagyl 500MG Oral Tablet 07/16/2018 GRE ENWAY ([place] 12:00:[address] [facility]) ferrous sulfate 325 MG 01/03/[address] ([place] Oral Tablet 12:00:00 AM [facility]) ferrous sulfate 325 MG 12/14/[address] ([place] Oral Tablet 12:00:00 AM [facility])
== END 2020-08-11 16:15 | disposition left against medical advice (07) ==
LOC: JER 14:54
DX: R42 Dizziness and giddiness (principal)
CPT/HCPCS: 99284-25

== ENCOUNTER 2020-08-11 16:57 | Emergency (ER) | payer OTHER ==
[2020-08-11 17:01] VITALS: BP 110/76; PULSE 84; TEMP 98.6; BMI 24.4
--- NOTE | 2020-08-11 17:25 | PDOC ---
History of Present Illness - General Chief Complaint: Lightheaded Stated Complaint: lightheaded Time Seen by Provider: 08/11/20 17:10 History Source: Patient Exam Limitations: No Limitations - History of Present Illness Initial Comments: 08/11/20 17:20 29 yo famle pmh anemia presents o the ED for 3 months of progressive lethargy and generalized weakness. Pt reports requiring 2 units blood 1 year ago and feels very similar to that ED visit. Pt reports heavy mensural bleeding every month on average goes through 10 pads a day for 10 days. LMP 07/11-07/25. Pt denies current vaginal bleeding,LOC, BRUNNER, F/C/N/V, CP, SOB, changes in bowel or bladder habits. Pt reports RLQ abdominal pain today and states her terminal carman sexual partner cheated on her and she would like to be tested for STDs. Denies vaginal burning/itching, vaginal discharge, burning on urination, hx of STDs. Past History - Medical History Allergies/Adverse Reactions: Allergies Allergy/AdvReac Type Severity Reaction Status Date / Time No Known Allergies Allergy Verified 01/28/20 11:08 Anemia: Yes Asthma: Yes Cancer: No Cardiac Disorders: No COPD: No Diabetes: No HTN: No Seizures: No Thyroid Disease: No - Surgical History Abdominal Surgery: Yes (PELVIC HERNIA X 2 (prior to C-sections)) - Reproductive History Is Patient Now?: No (#): 4 Para: 2 Cervical CA: No Dysfunctional Uterine Bleeding: No Ectopic : No Endometrial CA: No Polycystic Ovaries: No Therapeutic (s) & number: No Tubal Ligation: No Spontaneous : 1 - Immunization History Immunization Up to Date: No - Psycho-Social/Smoking History Smoking Status: Yes Smoking History: Never smoked Have you smoked in the past 12 months: No Number of Cigarettes Smoked Daily: 4 Information on smoking cessation initiated: No - Substance Abuse Hx (Audit-C & DAST Scrn) How often the patient has a drink containing alcohol: Never Score: In Men: 4 or > Positive; In Women: 3 or > Positive: 0 Screen Result (Pos requires Nsg. Audit-10AR): Negative In the last yr the pt used illegal drug/Rx for NonMed reason: No Score: Yes response is considered Positive: 0 Screen Result (Positive result requires Nsg. DAST-10): Negative Review of Systems - Review of Systems Constitutional: Yes: See HPI HEENTM: Yes: See HPI Respiratory: Yes: See HPI Cardiac (ROS): Yes: See HPI ABD/GI: Yes: See HPI : Yes: See HPI Musculoskeletal: Yes: See HPI Integumentary: Yes: See HPI *Physical Exam - Vital Signs Last Vital Signs Temp Pulse Resp BP Pulse Ox 98.6 F 84 17 110/76 100 08/11/20 16:59 08/11/20 16:59 08/11/20 16:59 08/11/20 16:59 08/11/20 16:59 - Physical Exam General Appearance: Yes: Nourished, Appropriately Dressed. No: Apparent Distress HEENT: positive: EOMI Neck: positive: Supple Respiratory/Chest: positive: Lungs Clear, Normal Breath Sounds Cardiovascular: positive: Regular Rhythm, Regular Rate, S1, S2. negative: Edema, JVD, Murmur Vascular Pulses: Dorsalis-Pedis (R): 4+, Doralis-Pedis (L): 4+ Female Pelvic Exam: positive: normal external exam, cervical os closed, normal adnexa, normal size ovaries. negative: CMT, discharge, adnexal tenderness, vaginal bleeding Gastrointestinal/Abdominal: positive: Flat, Soft, Tenderness (RLQ). negative: Pulsatile Mass, Distended, Guarding, Rebound Musculoskeletal: negative: CVA Tenderness Extremity: positive: Normal Capillary Refill, Normal Inspection, Normal Range of Motion Integumentary: positive: Normal Color, Dry, Warm Neurologic: positive: Fully Oriented, Alert, Normal Mood/Affect ED Treatment Course - LABORATORY CBC & Chemistry Diagram: 08/11/20 17:25 08/11/20 17:25 - RADIOLOGY Radiology Studies Ordered: Category Date Time Status TRANSVAGINAL ULTRASOUND US [US] Stat Ultrasound 08/11/20 17:11 Ordered Medical Decision Making - Medical Decision Making 08/11/20 17:26 29 yo famle pmh anemia presents o the ED for 3 months of progressive lethargy and generalized weakness. Pt reports requiring 2 units blood 1 year ago and feels very similar to that ED visit. Pt reports heavy mensural bleeding every month on average goes through 10 pads a day for 10 days. LMP 07/11-07/25. Pt denies current vaginal bleeding,LOC, BRUNNER, F/C/N/V, CP, SOB, changes in bowel or bladder habits. Pt reports RLQ abdominal pain today and states her terminal carman sexual partner cheated on her and she would like to be tested for STDs. Denies vaginal burning/itching, vaginal discharge, burning on urination, hx of STDs. 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 Discussed/shared decision making with pt on not to do CT Discharge - Discharge Information Problems reviewed: Yes Clinical Impression/Diagnosis: Abdominal pain Condition: Stable Disposition: HOME - Admission No - Follow up/Referral - Patient Discharge Instructions Patient Printed Discharge Instructions: DI for Abdominal Pain-Adult Additional Instructions: Please see your Primary Doctor within the next 48 hours. See your PIPELINE SYSTEMS OPERATOR doctor next week. Return to the ER for new or concerning symptoms including but not l imited to: worsening right lower quadrant pain, fevers, changes in bowel or bladder habits. Make sure to take your Iron pills as prescribed and multivitamins. Thank you - Post Discharge Activity
[2020-08-11 18:11] LABS: RDW 20.7 % (11.6-15.6); WHITE BLOOD COUNT 8.7 K/mm3 (4.0-10.8)
[2020-08-11 18:14] LABS: HEMATOCRIT 33.1 % (32.4-45.2); HEMOGLOBIN 9.8 GM/dl (10.7-15.3); MCHC 29.5 g/dl (32.0-36.0); MEAN CELL VOLUME 61.6 fl (80-96); MEAN PLT VOLUME 9.2 fl (7.5-11.1); PLATELET COUNT 277 K/MM3 (134-434); RBC 5.38 M/mm3 (3.60-5.2)
[2020-08-11 18:19] LABS: ALBUMIN 5.2 g/dl (3.4-5.0); BILIRUBIN,TOTAL 0.5 mg/dl (0.2-1); CALCIUM 9.7 mg/dl (8.5-10); CREATININE 0.7 mg/dl (0.55-1.3); POTASSIUM 3.8 mmol/L (3.5-5.1); TOT PROT 8.8 g/dl (6.4-8.2)
[2020-08-11 18:20] LABS: MCH 18.1 pg (25.7-33.7)
[2020-08-11 18:31] LABS: ACTIVATED PTT 24.2 SECONDS (25.2-36.5)
[2020-08-11 18:35] LABS: INR 1.04 (0.82-1.09); PROTHROMBIN TIME (PATIENT) 11.6 SEC (10.2-13.0)
[2020-08-11] MEDS ORDERED: AZITHROMYCIN 500 MG TABLET PO ONE (18:59)
--- NOTE | 2020-08-11 18:59 | PDOC ---
Attending Attestation - Resident Resident Name: Bashir Reed - ED Attending Attestation I have performed the following: I have examined & evaluated the patient, The case was reviewed & discussed with the resident, I agree w/resident's findings & plan, Exceptions are as noted - HPI HPI: 08/11/20 19:23 29 yo F h/o heavy periods, anemia, here with /co not feeling well, headaches, lightheaded. pt states not , has 3 children. average period is 10 days long. was on depot previously, no longer, was previously taking iron, and stopped because caused her to be constipated. not currently bleeding. no f/c c/o mild right lower quad pain, constant for one month. no mod factors. no n/v no f/c. no discharge. did have possible std exposure of boyfriend who cheated on her. would like to be tested for STD's - Physicial Exam PE: 08/11/20 19:26 awake alert lungs clear bilat heart rrr no mrg abd soft mild mid right lower quad ttp. no rebound no guarding. ext wwp.l no cva tenderness. - Medical Decision Making 08/11/20 19:27 29 yo F here with std exposure, concerns for anemia and h/o heavy periods. plan ua r/o sti, uti, r/o anemia. tvus r/o ovarian cyst or torsion. due to length of sxs appendicitis unlikely pt us with complex right adnexal cyst, likely hemorrhagic. pt needs repeat us in 6 weeks. hgb 9.8 . at 29 yrs old, no transufsion indicated. ua ucg pending. would like to be treated for sti, given ceftriaxone, and azithromycin. will [facility] dc home, told to fu with filling hauler, and vitaminds with [facility]. ua negative. ucg negative. dc home. Discharge - Discharge Information Problems reviewed: Yes Clinical Impression/Diagnosis: Abdominal pain, Anemia, Ovarian cyst Condition: Stable Disposition: HOME - Admission No - Follow up/Referral - Patient Discharge Instructions Patient Printed Discharge Instructions: DI for Abdominal Pain-Adult, Ovarian Cyst Additional Instructions: Please see your Primary Doctor within the next 48 hours. See your NON DESTRUCTIVE TESTING SUPERVISOR doctor next week. Return to the ER for new or concerning symptoms including but not limited to: worsening right lower quadrant pain, fevers, changes in bowel or bladder habits. your hemoglobin today is 9.8 therefore you do not need a transfusion, but you should start taking daily supplement with iron. you have been treated for any potential ghonorhea, or chlamydia. you will be notified if any test is positive. Thank you - Post Discharge Activity
[2020-08-11 19:11] LABS: ANISOCYTOSIS 3+
[2020-08-11 19:12] LABS: PLATELET ESTIMATE ADEQUATE
[2020-08-11] MEDS ORDERED: AZITHROMYCIN 250 MG TABLET ONE (19:23)
== END 2020-08-11 19:37 | disposition home or self-care (01) ==
LOC: FER 16:57
DX: R10.9 Unspecified abdominal pain (principal)
CPT/HCPCS: 36415; 76830-TC; 80053; 81003; 84443; 84703; 85025; 85610; 85730; 86780; 86850; 86870; 86900; 86901; 86902; 87086; 87110; 87389; 87491; 87591; 99284-25

== ENCOUNTER 2020-10-11 01:17 | Emergency (ER) | payer OTHER ==
[2020-10-11 01:26] VITALS: BP 98/56; PULSE 89; BMI 26.4
[2020-10-11 01:42] VITALS: TEMP 97.6
[2020-10-11] MEDS ORDERED: ACETAMINOPHEN 500 MG TABLET (FP) PO ONE (01:47)
== END 2020-10-11 03:27 | disposition home or self-care (01) ==
LOC: JER 01:17
DX: M25.571 Pain in right ankle and joints of right foot (principal)
CPT/HCPCS: 73610-TC-RT-FY; 73630-TC-RT-FY; 99284-25

== ENCOUNTER 2021-08-05 23:35 | Emergency (ER) | payer OTHER ==
[2021-08-05 23:43] VITALS: BP 100/55; PULSE 83; TEMP 98.1; BMI 22.4
[2021-08-06] MEDS ORDERED: ACETAMINOPHEN 500 MG TABLET (FP) PO ONE (00:04)
[2021-08-06] MEDS ORDERED: ACETAMINOPHEN 500 MG TABLET (FP) ONE (00:05)
[2021-08-09 08:23] LABS: SARS-CoV-2 NAA NOT DETECTED
== END 2021-08-06 00:07 | disposition home or self-care (01) ==
LOC: FER 23:35
DX: J02.9 Acute pharyngitis, unspecified (principal)
CPT/HCPCS: 99283-25; C9803; U0003; U0005

== ENCOUNTER 2021-11-20 15:40 | Emergency (ER) | payer OTHER ==
[2021-11-20 16:17] VITALS: BP 106/63; PULSE 74; TEMP 99.2; BMI 22.4
[2021-11-20] MEDS ORDERED: SODIUM CHLORIDE 0.9% 500 ML INFUS.BAG IV ONE (17:15)
[2021-11-20] MEDS ORDERED: ONDANSETRON 4 MG/2 ML VIAL IVPUSH ONE (17:15)
[2021-11-20] MEDS ORDERED: FAMOTIDINE 20 MG/50 ML IVPB 20 MG/50 ML MG IVPB ONE ×2 (17:27→17:31)
[2021-11-20] MEDS ORDERED: ONDANSETRON 4 MG/2 ML VIAL ONE (17:31)
[2021-11-20 18:37] LABS: BASO % 0.8 % (0-2.0); EOS % 0.3 % (0-4.5); LYMPH % 37.5 % (8-40); MCHC 28.5 g/dl (32.0-36.0); MEAN CELL VOLUME 52.9 fl (80-96); MEAN PLT VOLUME 9.6 fl (7.5-11.1); MONO % 14.2 % (3.8-10.2); NEUT % 47.2 % (42.8-82.8); PLATELET COUNT 256 10^3/uL (134-434); WHITE BLOOD COUNT 4.2 K/mm3 (4.0-10.0)
[2021-11-20 18:52] LABS: MCH 15.1 pg (25.7-33.7)
[2021-11-20 19:49] LABS: ALBUMIN 3.9 g/dl (3.4-5.0); BLOOD UREA NITROGEN 14.2 mg/dL (7-18); CALCIUM 8.7 mg/dL (8.5-10.1)
[2021-11-20 19:52] LABS: CREATININE 0.7 mg/dL (0.55-1.3)
[2021-11-20 19:54] LABS: BILIRUBIN,TOTAL 0.4 mg/dL (0.2-1); TOT PROT 7.3 g/dl (6.4-8.2)
[2021-11-20 21:16] LABS: ANISOCYTOSIS 3+; MACROCYTOSIS 0; PLATELET ESTIMATE DECREASED
[2021-11-20] MEDS ORDERED: METOCLOPRAMIDE HCL INJECTION 10 MG/2 ML VIAL IVPUSH ONE (21:24)
[2021-11-20 21:54] LABS: EPI CELLS >36 /uL (0-25.1); HYALINE CASTS 4 /uL (0-3.1); URINE APPEARANCE CLOUDY; URINE BACTERIA >9,000 /uL (0-1359); URINE BILIRUBIN NEGATIVE (NEGATIVE); URINE COLOR YELLOW; URINE GLUCOSE (UA) NEGATIVE (NEGATIVE); URINE KETONE 2+ (NEGATIVE); URINE LEUK ESTERASE NEGATIVE (NEGATIVE); URINE NITRITE POSITIVE (NEGATIVE); URINE PROTEIN TRACE (NEGATIVE); URINE RBC 9 /uL (0-23.9); URINE WBC 27 /uL (0-25.8)
[2021-11-20] MEDS ORDERED: METOCLOPRAMIDE HCL INJECTION 10 MG/2 ML VIAL ONE (22:00)
[2021-11-20] MEDS ORDERED: DEXTROSE 5%-NORMAL SALINE 1,000 ML IV SCH (22:15)
[2021-11-20] MEDS ORDERED: NITROFURANTOIN MACROCRYSTAL 50 MG CAPSULE (FP) PO ONE (22:45)
== END 2021-11-20 23:25 | disposition home or self-care (01) ==
LOC: JER 15:40
PROC: 3E033GC Introduction of Other Therapeutic Substance into Peripheral Vein, Percutaneous Approach (ICD-10-PCS; principal; 2021-11-20)
DX: N39.0 Urinary tract infection, site not specified (principal); R11.2 Nausea with vomiting, unspecified
CPT/HCPCS: 36415; 80053; 81003; 84703; 85025; 87086; 87186; 87804; 96365; 96375; 99284-25; C9803; U0003; U0005

== ENCOUNTER 2022-03-01 18:04 | Emergency (ER) | payer OTHER ==
[2022-03-01] MEDS ORDERED: DIPHTH,PERTUSS(ACELL),TET 0.5 ML DISP.SYRIN IM ONE ×2 (18:19→18:25)
[2022-03-01 19:02] VITALS: BP 107/58; PULSE 65; TEMP 98.9; BMI 22.4
[2022-03-01] MEDS ORDERED: ACETAMINOPHEN 325 MG TABLET (FP) PO ONE (20:06)
[2022-03-01] MEDS ORDERED: ACETAMINOPHEN 325 MG TABLET (FP) ONE (20:08)
== END 2022-03-01 20:15 | disposition home or self-care (01) ==
LOC: FER 18:04
PROC: 3E0234Z Introduction of Serum, Toxoid and Vaccine into Muscle, Percutaneous Approach (ICD-10-PCS; principal; 2022-03-01)
DX: S00.03XA Contusion of scalp, initial encounter (principal); S60.511A Abrasion of right hand, initial encounter; W20.8XXA Other cause of strike by thrown, projected or falling object, initial encounter
CPT/HCPCS: 70450-TC; 90715; 99284-25